=== PATIENT | male | born 1995 | race Hispanic/Latino ===

== ENCOUNTER 2021-04-22 13:09 | Emergency (ER) | payer OTHER ==
[~2021-04-22] VITALS: Ht 185.4 cm; Wt 88.5 kg
[2021-04-22 13:10] VITALS: BP 159/107
== END 2021-04-22 16:09 | disposition home or self-care (01) ==
LOC: EDH 13:09
DX: S52.591A Other fractures of lower end of right radius, initial encounter for closed fracture (principal); S52.691A Other fracture of lower end of right ulna, initial encounter for closed fracture; X58.XXXA Exposure to other specified factors, initial encounter; Y93.89 Activity, other specified; Y92.89 Other specified places as the place of occurrence of the external cause; Y99.8 Other external cause status
CPT/HCPCS: 73090; 73110